=== PATIENT | female | born 1950 | race African-American/Black ===

== ENCOUNTER 2016-07-19 19:32 | Emergency (ER) | payer MEDICARE, OTHER ==
[~2016-07-19 19:32] MED LIST: HYDR12.5 PO; VALS160T2 PO
== END 2016-07-19 20:05 | disposition left against medical advice (07) ==
LOC: ER 19:32
DX: Z53.21 Procedure and treatment not carried out due to patient leaving prior to being seen by health care provider (principal)

== ENCOUNTER 2016-08-07 15:07 | Emergency (ER) | payer MEDICARE, OTHER ==
[~2016-08-07] VITALS: Ht 160 cm; Wt 65.3 kg
[2016-08-07] MEDS ORDERED: INDA1.255 PO (15:31)
[2016-08-07] MEDS ORDERED: ESCI10TA PO (15:31)
[2016-08-07 15:45] VITALS: BP 169/121
--- NOTE | 2016-08-07 15:55 | NUR ---
pt walks in steady gait, says feels better after talking to the md
--- NOTE | 2016-08-07 15:55 | NUR ---
Patient discharged to home in stable conditon. Written and verbal after care instructions given. Patient verbalizes understanding of instructions.er md educatd the pt on her bp meds
== END 2016-08-07 15:56 | disposition home or self-care (01) ==
LOC: ER 15:07
DX: F41.9 Anxiety disorder, unspecified (principal); I10 Essential (primary) hypertension
CPT/HCPCS: 99284; A4663